=== PATIENT | female | born 1955 ===

== ENCOUNTER 2016-12-05 19:34 | Emergency (ER) | payer OTHER ==
[2016-12-05 19:45] VITALS: BMI 27.4
[2016-12-05 19:52] VITALS: BP 139/83; PULSE 69; TEMP 97.9; O2SAT 97
--- NOTE | 2016-12-05 21:34 | CT ---
EXAM: CT Head Without Intravenous Contrast EXAM DATE/TIME: 12/05/2016 8:07 PM CLINICAL HISTORY: 60 years old, female; Injury or trauma; Fall; Initial encounter; Concussion / head injury TECHNIQUE: Axial computed tomography images of the head/brain without intravenous contrast. All CT scans at this facility use one or more dose reduction techniques, viz.: automated exposure control; ma/kV adjustment per patient size (including targeted exams where dose is matched to indication; i.e. head); or iterative reconstruction technique. COMPARISON: There are no prior studies for comparison. FINDINGS: Artifacts: There is streak artifact from a cochlear implant Brain: Ventricles are normal in size and configuration. There is no midline shift. There are no intra-axial or extra-axial mass lesions or areas of hemorrhage. There are no abnormal fluid collections. Acevedo-white differentiation is maintained. Ventricles: See above. Bones: There is no skull fracture. Soft tissues: unremarkable Sinuses: There is maxillary sinusitis sinusitis. Ears and mastoids: There is a cochlear implant on the right. There is a right mastoidectomy defect. Left middle ear and mastoid are unremarkable. Orbits: Globes are intact. There is left periorbital soft tissue swelling IMPRESSION: No acute intracranial abnormality; right cochlear implant with postsurgical changes in the right mastoid
--- NOTE | 2016-12-05 22:09 | C.PDOC ---
History Of Present Illness 60 year old female presents to the ED with complaints of dizziness, headache, and mild nausea following an accident at work. Patient states prior to arrival she fell backwards and hit her head. She denies LOC or vomiting. - HPI Time Seen by Provider: 12/05/16 20:02 Chief Complaint (Nursing): Trauma History Per: Patient History/Exam Limitations: no limitations Onset/Duration Of Symptoms: Mins Injury Occurred (Timing): Just Before Arrival Location Of Injury: Posterior: Head Recent travel outside of the [place]: No - Fall Fall:Prior To Injury: Other (fell backwards ) Past Medical History Reviewed: Historical Data, Nursing Documentation, Vital Signs Vital Signs: Last Vital Signs Temp 97.9 F 12/05/16 19:47 Pulse 69 12/05/16 19:47 Resp 20 12/05/16 22:22 BP 139/83 12/05/16 19:47 Pulse Ox 97 12/06/16 03:45 - Medical History PMH: HTN Family History: States: Unknown Family Hx - Social History Hx Alcohol Use: No Hx Substance Use: No - Immunization History Hx Tetanus Toxoid Vaccination: No Hx Influenza Vaccination: No Hx Pneumococcal Vaccination: No Review Of Systems Constitutional: Negative for: Fever Gastrointestinal: Positive for: Nausea. Negative for: Vomiting Neurological: Positive for: Headache, Dizziness Physical Exam - Physical Exam Appears: Non-toxic, No Acute Distress Skin: Warm, Dry Head: Swelling (swelling to posterior occipital area ), No Abrasion, No Laceration Eye(s): bilateral: Normal Inspection, PERRL, EOMI Ear(s): Bilateral: Normal Oral Mucosa: Moist Neck: Normal ROM, Supple Chest: Symmetrical, No Deformity Cardiovascular: Rhythm Regular, No Murmur Respiratory: Normal Breath Sounds, No Rales, No Rhonchi, No Wheezing Extremity: Normal ROM, No Tenderness Neurological/Psych: Oriented x3, Normal Speech, Normal Cognition, Normal Cranial Nerves, No Cerebellar Signs, Normal Motor, Normal Sensation Gait: Steady ED Course And Treatment O2 Sat by Pulse Oximetry: 97 (RA) - CT Scan/US CT Head Without Intravenous Contrast Other Rad Studies (CT/US): Read By Radiologist, Radiology Report Reviewed CT/US Interpretation: FINDINGS: Artifacts: There is streak artifact from a cochlear implant. Brain: Ventricles are normal in size and configuration. There is no midline shift. There are no intraaxial. or extra-axial mass lesions or areas of hemorrhage. There are no abnormal fluid collections. Acevedo- white differentiation is maintained. Ventricles: See above. Bones: There is no skull fracture. Soft tissues: unremarkable. Sinuses: There is maxillary sinusitis sinusitis. Ears and mastoids: There is a cochlear implant on the right. There is a right mastoidectomy defect. Left middle ear and mastoid are unremarkable. Orbits: Globes are intact. There is left periorbital soft tissue swelling. IMPRESSION: No acute intracranial abnormality; right cochlear implant with postsurgical changes in. the right mastoid Progress Note: Head CT was ordered and patient was given Tylenol. CT was negative. On re-evaluation patient notes improvement of symptoms and is ready to be discharged home. Disposition - Disposition Referrals: Clinic,Med Surg [Primary Care Provider] - Disposition: HOME/ ROUTINE Disposition Time: 22:07 Condition: STABLE Additional Instructions: Follow up with your PMD/clinic within 1-2 days. Return to ED if feel worse. Prescriptions: traMADol/Acetaminophen [Ultracet 325 MG-37.5 MG] 1 tab PO Q6 PRN #30 tab PRN Reason: Pain Instructions: Head Injury (ED) Forms: [employer] ([place]), Work Excuse Print Language: GREENLANDIC - Clinical Impression Clinical Impression: Minor head injury - PA / MANAGER INVE[employer]MENT / Resident Statement MD/DO has reviewed & agrees with the documentation as recorded. - Scribe Statement The provider has reviewed the documentation as recorded by the Scribe Danette Mario All medical record entries made by the Scribe were at my direction and personally dictated by me. I have reviewed the chart and agree that the record accurately reflects my personal performance of the history, physical exam, medical decision making, and the department course for this patient. I have also personally directed, reviewed, and agree with the discharge instructions and disposition.
[2016-12-05 22:23] VITALS: RESP 20
== END 2016-12-05 22:22 | disposition home or self-care (01) ==
LOC: SUPCPDRO 19:34 → C.ER 19:34
DX: S09.90XA Unspecified injury of head, initial encounter (principal); W19.XXXA Unspecified fall, initial encounter; Y92.89 Other specified places as the place of occurrence of the external cause; Y99.0 Civilian activity done for income or pay